=== PATIENT | male | born 1985 | race Caucasian/White ===

== ENCOUNTER 2024-09-17 07:13 | Outpatient (OUT) | payer BC, SELFPAY ==
[2024-09-17 07:31] LABS: Basophils Percent Auto 0.6 % (0.2-2.0); Eosinophils Absolute Auto 0.1 10^3/uL (0.0-0.7); Eosinophils Percent Auto 1.8 % (0.9-7.0); Hematocrit 46.4 % (42.0-54.0); Hemoglobin 15.5 g/dL (14.0-18.0); Immature Granulocytes Abs Auto 0.01 10^3/uL (0.00-0.03); Immature Granulocytes Pct Auto 0.2 % (0.0-0.5); Lymphocytes Absolute Auto 1.8 10^3/uL (1.2-3.8); Lymphocytes Percent Auto 35.2 % (20.5-60.0); Mean Corpuscular HGB Conc 33.4 g/dL (29.9-35.2); Mean Corpuscular Hemoglobin 30.4 pg (25.9-34.0); Mean Platelet Volume 10.6 fL (9.5-13.5); Monocytes Absolute Auto 0.4 10^3/uL (0.3-0.8); Monocytes Percent Auto 8.6 % (1.7-12.0); Neutrophils Absolute Auto 2.8 10^3/uL (1.4-6.5); Neutrophils Percent Auto 53.6 % (43.0-75.0); Platelet Count 204 10^3/uL (150-450); Red Cell Distribution Width 13.1 % (11.0-15.0); White Blood Count 5.1 10^3/uL (4.0-11.0)
[2024-09-17 08:04] LABS: Estimated Average Glucose 117 mg/dL; Glycohemoglobin A1C 5.7 % (4.5-6.2)
[2024-09-17 08:14] LABS: Alanine Aminotransferase 91 U/L (16-63); Albumin Globulin Ratio 1.3; Alkaline Phosphatase 75 U/L (46-116); Anion Gap 10.3; Aspartate Amino Transferase 78 U/L (15-37); BUN Creatinine Ratio 19.7; Bilirubin Direct 0.2 mg/dL (0.0-0.2); Bilirubin Total 0.9 mg/dL (0.2-1.0); Carbon Dioxide 29.6 mmol/L (21.0-32.0); Chloride 100 mmol/L (98-107); Chol HDL Ratio 2.4; Cholesterol 135 mg/dL (<=200); Estimated GFR (African America >60 (>=60 mL/min/1.73m^2); Estimated GFR (Non-African Ame >60 (>=60 mL/min/1.73m^2); Globulin 3.1 g/dL; Glucose 93 mg/dL (74-106); HDL Cholesterol 56 mg/dL (40-60); LDL Cholesterol Calculated 71.2 mg/dL; Potassium 3.9 mmol/L (3.5-5.1); Sodium 136 mmol/L (136-145); Thyroid Stimulating Hormone 2.627 uIU/mL (0.358-3.740); Total Protein 7.1 g/dL (6.4-8.2); Triglycerides 39 mg/dL (<=150); VLDL CHOLESTEROL 7.8 mg/dL
[2024-09-18 09:07] LABS: Testosterone 281 ng/dL (264-916)
== END 2024-09-17 07:14 | disposition home or self-care (01) ==
LOC: LAB 07:17
PROVIDERS: PCP Family Medicine; Visit Provider Family Medicine
DX: Z00.00 Encounter for general adult medical examination without abnormal findings (principal)
CPT/HCPCS: 36415; 80048; 80061; 80076; 83036; 84403; 84443; 85025

== ENCOUNTER 2024-10-01 07:14 | Outpatient (OUT) | payer BC, SELFPAY ==
--- NOTE | 2024-10-01 07:16 | US_ITS ---
The [address] [address] Patient Name: DIONISIO ONOFRE MRN: [id number] date: 1985 Sex: M Assigned Patient Location: US Current Patient Location: Accession/Order Number: [id number] Exam Date: 10/01/2024 12:36 Report Date: 10/01/2024 12:42 At the request of: ZACH MAYFIELD MD Procedure: US right upper quadrant EXAMINATION TYPE: US right upper quadrant DATE OF EXAM ORDERED: 10/01/2024 7:35 AM HISTORY: Elevated liver enzymes COMPARISON: NONE TECHNIQUE: Realtime imaging limited to the right upper quadrant was performed. FINDINGS: The gallbladder appears within normal limits without evidence of cholelithiasis. The gallbladder wall measures 2 mm in thickness. The common bile but measures 3 mm in diameter. No intrahepatic or extrahepatic biliary dilatation is seen. The liver is normal in echo reflectivity. Hepatopedal flow is noted in the main portal vein. Partial visualization of the right kidney reveals no gross hydronephrosis. Partial visualization of the pancreas reveals no abnormality. US/US right upper quadrant IMPRESSION: Normal right upper quadrant ultrasound. Impression dictated by: Ivan Colon M.D. 10/01/2024 12:42 PM Dictation Location: [place] [address] Electronically authenticated by: [id number] Y Date: 10/01/2024 12:42
== END 2024-10-01 07:15 | disposition home or self-care (01) ==
LOC: US 07:14
PROVIDERS: PCP Family Medicine; Visit Provider Family Medicine
DX: R74.8 Abnormal levels of other serum enzymes (principal)
CPT/HCPCS: 76705